=== PATIENT | female | born 1960 | race Caucasian/White ===

== ENCOUNTER 2023-05-09 14:02 | Emergency (ER) | payer MEDICARE ==
[~2023-05-09] VITALS: Ht 152.4 cm; Wt 47.6 kg
[2023-05-09] MEDS ORDERED: IBUPROFEN (14:21)
[2023-05-09] MEDS ORDERED: TRAZODONE (14:21)
[2023-05-09] MEDS ORDERED: IMITREX (14:21)
[2023-05-09] MEDS ORDERED: PROZAC (14:21)
[2023-05-09] MEDS ORDERED: LEVOTHYROXIN (14:21)
[2023-05-09] MEDS ORDERED: diphenhydrAMINE 50 MG/1 ML VIAL IV ONE (14:45)
[2023-05-09] MEDS ORDERED: METOCLOPRAMIDE HCL 10 MG/2 ML VIAL IV ONE (14:45)
[2023-05-09] MEDS ORDERED: ACETAMINOPHEN ES 500 MG TABLET PO ONE (14:45)
[2023-05-09] MEDS ORDERED: KETOROLAC TROMETHAMINE 15 MG INJ IVP ONE (14:45)
[2023-05-09] MEDS ORDERED: IV NORMAL SALINE 1000 ML BAG IV ONE (14:45)
[2023-05-09 14:46] LABS: *BILIRUBIN,URIN NEGATIVE (NEGATIVE); *BLOOD, URINE NEGATIVE (NEGATIVE); *CLARITY,URINE CLEAR (CLEAR); *COLOR,URINE YELLOW (YELLOW); *KETONES,URINE NEGATIVE (NEGATIVE); *UROBILINOGEN,URINE 0.2 E.U./dl (NORMAL); LEUKOCYTE ESTERASE ,URINE NEGATIVE (NEGATIVE); NITRITE, URINE POSITIVE (NEGATIVE); UGLUCOSE NEGATIVE (NEGATIVE)
--- NOTE | 2023-05-09 14:52 | NUR ---
Patient to room #4a, was seen by ER provider, informed of plan of care. #18g established in right ac, blood collected and sent to lab. 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
[2023-05-09] MEDS ORDERED: ACETAMINOPHEN ES 500 MG TABLET ONE (14:57)
[2023-05-09] MEDS ORDERED: diphenhydrAMINE 50 MG/1 ML VIAL ONE (14:58)
[2023-05-09] MEDS ORDERED: METOCLOPRAMIDE HCL 10 MG/2 ML VIAL ONE (14:58)
[2023-05-09] MEDS ORDERED: KETOROLAC TROMETHAMINE 15 MG INJ ONE (14:58)
[2023-05-09] MEDS ORDERED: CEPH500C2 PO (15:27)
[2023-05-09 15:32] LABS: BACTERIA,URINE MANY /HPF (NONE SEEN); RBC,URINE NONE SEEN /HPF (0-3); SQUAMOUS EPITHELIAL CELL,UR FEW /HPF (NONE SEEN); WBC,URINE 0-3 /HPF (0-3)
--- NOTE | 2023-05-09 15:36 | NUR ---
IVF continues as per order, patient resting in bed on phone, no change in primary assessment.
--- NOTE | 2023-05-09 15:58 | NUR ---
patient states that she feels better. IVF done, ACI given and states understanding. Patient remains stable for discharge home with family.
[2023-05-09 16:00] VITALS: BP 117/90; O2SAT 99
== END 2023-05-09 16:01 | disposition home or self-care (01) ==
LOC: ER 14:02
DX: G43.909 Migraine, unspecified, not intractable, without status migrainosus (principal); F41.9 Anxiety disorder, unspecified; N39.0 Urinary tract infection, site not specified; E03.9 Hypothyroidism, unspecified; Z79.899 Other long term (current) drug therapy
CPT/HCPCS: 99284; 96374; 96375; 81001; J1200; J1885; J2765; J7040; A4663; A9150